=== PATIENT | female | born 1960 | race Caucasian/White ===

== ENCOUNTER 2023-03-18 08:39 | Emergency (ER) | payer BC ==
[~2023-03-18] VITALS: Ht 165.1 cm; Wt 58.5 kg
[2023-03-18 09:07] VITALS: BP 128/84
== END 2023-03-18 10:55 | disposition home or self-care (01) ==
LOC: ER 08:39
DX: S63.501A Unspecified sprain of right wrist, initial encounter (principal); M25.511 Pain in right shoulder; X50.0XXA Overexertion from strenuous movement or load, initial encounter; Y93.89 Activity, other specified
CPT/HCPCS: 29125; 73030; 73110; 99283-25

== ENCOUNTER 2023-04-10 22:06 | Emergency (ER) | payer BC ==
[~2023-04-10] VITALS: Ht 167.6 cm; Wt 59.0 kg
[2023-04-10 22:11] VITALS: BP 122/73
== END 2023-04-10 23:36 | disposition home or self-care (01) ==
LOC: ER 22:06
DX: L98.8 Other specified disorders of the skin and subcutaneous tissue (principal); S80.811A Abrasion, right lower leg, initial encounter; X58.XXXA Exposure to other specified factors, initial encounter; Z88.1 Allergy status to other antibiotic agents
CPT/HCPCS: 99282